=== PATIENT | male | born 1940 | race Caucasian/White ===

== ENCOUNTER 2020-02-24 09:59 | Day surgery (SDC) | payer MEDICARE, OTHER ==
[~2020-02-24] VITALS: Ht 160 cm; Wt 153.8 kg
[~2020-02-24 09:59] MED LIST: ALBU90OI61 INH; ALLO300 PO; BUME2 PO; CARV25 PO; CLOP75 PO; Cialis5 MG; DIGO.25 PO; Daily Multiple1 EACH PO; FURO100EL PO; FURO80 PO; GLUC500 PO; LISI5 PO; METF500 PO; POTCHL20ER PO; SOMA350 MG PO; SPIR50 PO; TRAACE PO; WARF5 PO
--- NOTE | 2020-02-24 18:41 | NUR ---
SHIFT SUMMARY PT IS ALERT AND ORIENTED. S/P ANGIO WITH 2 STENTS TO RCA. TR BAND HAS BEEN OFF AND RIGHT RADIAL IS SOFT, NO HEMATOMA, GOOD PULSES, ARMBOARD REMAINS IN PLACE. TELEMETRY HAS SHOWN PT TO BE IN A-FIB WITH RATES 40-60, ASYSTOMATIC. OTHER VITALS HAVE BEEN STABLE. PT DECLINED TO HAVE LASIX AND POTASSIUM DOSE THIS EVENING. LUNGS ARE CLEAR, DIM IN BASES, PT IS ON ROOM AIR.
[2020-02-25 04:07] LABS: International Normalized Ratio 1.03
--- NOTE | 2020-02-25 06:27 | NUR ---
patient came in after an elective angiogram with two stent placement. Patient did well overnight with no complaints. No chest pain, no chest pressure, or any other cardio pulmonary symptoms. Plan for this patient is likely to go home in the morning.
[2020-02-25] MEDS ORDERED: ASPI81CH PO (11:24)
--- NOTE | 2020-02-25 12:42 | NUR ---
PT DISCHARGE TO HOME WITH DISCHARGE ORDERS. VITALS HAS BEEN STABLE, NO ACUTE ISSUES FOR THE SHIFT. RIGHT RADIAL ACCESS SITE, CDI. DENIES CHEST PAIN/PRESSURE. PT TO CONTINUE CURRENT MEDS AT HOME TO START ASPIRIN 81 MG. DISCHARGE MEDICATIONS AND INSTRUCTIONS DISCLOSED [facility] PT AND . TO FOLLOW-UP WITHIN 2 WEEKS WITH [facility] SPLITTER AND PCP. ALL BELONGINGS SENT WITH PT, ACCOMPANIED BY [facility] VIA WHEELCHAIR FOR TRANSPORT.
== END 2020-02-25 12:30 | disposition home or self-care (01) ==
LOC: MHTC 09:59 → PCU 13:19 → MHTC 02-25 12:30
PROVIDERS: Internal Medicine Interventional Cardiology
PROC: B201YZZ Plain Radiography of Multiple Coronary Arteries using Other Contrast (ICD-10-PCS; principal; 2020-02-24)
PROC: 4A023N7 Measurement of Cardiac Sampling and Pressure, Left Heart, Percutaneous Approach (ICD-10-PCS; principal; 2020-02-24)
DX: I25.118 Atherosclerotic heart disease of native coronary artery with other forms of angina pectoris (principal); T82.855A Stenosis of coronary artery stent, initial encounter; I10 Essential (primary) hypertension; E11.9 Type 2 diabetes mellitus without complications; E66.01 Morbid (severe) obesity due to excess calories; E78.5 Hyperlipidemia, unspecified; Y83.1 Surgical operation with implant of artificial internal device as the cause of abnormal reaction of the patient, or of later complication, without mention of misadventure at the time of the procedure; Z79.84 Long term (current) use of oral hypoglycemic drugs; Z88.0 Allergy status to penicillin; Z79.82 Long term (current) use of aspirin; Z79.01 Long term (current) use of anticoagulants; Z79.899 Other long term (current) drug therapy; Z87.891 Personal history of nicotine dependence; Z68.44 Body mass index [BMI] 60.0-69.9, adult
CPT/HCPCS: 36415; 76937; 85347; 85610; 92978; 93458; 99152; 99153; A9270; A9270-GY; C1725; C1753; C1769; C1874; C1887; C1894; C9600; J1644; J1650; J2250; J3010; J7030; Q9967

== ENCOUNTER 2022-10-21 17:25 | Emergency (ER) | payer MEDICARE, OTHER ==
[~2022-10-21] VITALS: Ht 188 cm; Wt 145.2 kg
[~2022-10-21 17:25] MED LIST changes: +ASPI81CH PO; +ENTRESTO 49 MG1 EAC7; +FURO40 PO; +METO25ER PO; +METOPROLOL SUCC25 MG PO
[2022-10-21 18:57] LABS: BASOPHILS ABSOLUTE AUTO 0.03 K/mm3 (0.00-0.23); BASOPHILS PERCENT AUTO 0 % (0-2); EOSINOPHILS PERCENT AUTO 0 % (0-6); Hematocrit 37.3 % (37.0-53.0); Hemoglobin 12.2 g/dL (13.5-17.5); IMMATURE GRAN ABSOLUTE AUTO 0.05 K/mm3 (0.00-0.10); IMMATURE GRAN PERCENT AUTO 1 % (0-1); LYMPHOCYTES ABSOLUTE AUTO 0.56 K/mm3 (0.84-5.20); LYMPHOCYTES PERCENT AUTO 6 % (21-46); MONOCYTES ABSOLUTE AUTO 0.42 K/mm3 (0.16-1.47); MONOCYTES PERCENT AUTO 5 % (4-13); Mean Corpuscular HGB 31.5 pg (26.0-34.0); Mean Corpuscular HGB Conc 32.7 g/dL (31.5-36.5); Mean Corpuscular Volume 96 fL (80-100); Mean Platelet Volume 8.9 fL (9.1-12.4); NEUTROPHILS PERCENT AUTO 88 % (41-73); Platelet Count 209 K/mm3 (150-400); RDW Coefficient Variation 14.7 % (11.7-14.2); RDW Standard Deviation 52.2 fL (35.1-46.3); Red Blood Cell Count 3.87 M/mm3 (4.30-5.90); White Blood Cell Count 8.96 K/mm3 (4.00-11.30)
[2022-10-21 19:31] LABS: Albumin, Blood 3.8 g/dL (3.4-5.0); Bilirubin, Total 1.1 mg/dL (0.1-1.0); Bun/Creatinine Ratio 24.5 (12.0-20.0); Creatinine, Blood 0.86 mg/dL (0.60-1.20); Globulin, Blood 3.8 g/dL (2.2-4.0); Potassium, Blood 4.1 mmol/L (3.5-5.5); Total Protein, Blood 7.6 g/dL (6.4-8.2)
[2022-10-21] MEDS ORDERED: Percocet 5-3251 EACH PO (20:19)
[2022-10-21 20:54] LABS: Prothrombin Time Results 41.5 Sec (9.7-11.5)
[2022-10-21 20:58] LABS: International Normalized Ratio 4.35
== END 2022-10-21 20:56 | disposition home or self-care (01) ==
LOC: ER 17:25
PROVIDERS: Emergency Medicine
DX: M24.9 Joint derangement, unspecified (principal); I50.9 Heart failure, unspecified; R79.1 Abnormal coagulation profile; Z88.0 Allergy status to penicillin; Z79.899 Other long term (current) drug therapy; Z79.01 Long term (current) use of anticoagulants; Z95.5 Presence of coronary angioplasty implant and graft; Z79.84 Long term (current) use of oral hypoglycemic drugs
CPT/HCPCS: 80053; 85025; 85379; 85610; A9270; J1170; J2405

== ENCOUNTER 2023-01-24 20:15 | Emergency (ER) | payer MEDICARE, OTHER ==
[~2023-01-24] VITALS: Ht 175.3 cm; Wt 136.1 kg
[~2023-01-24 20:15] MED LIST changes: +Percocet 5-3251 EACH PO
[2023-01-24] MEDS ORDERED: ENTRESTO 24 MG1 EACH PO (20:35)
[2023-01-24 20:46] LABS: BASOPHILS ABSOLUTE AUTO 0.04 K/mm3 (0.00-0.23); BASOPHILS PERCENT AUTO 1 % (0-2); EOSINOPHILS ABSOLUTE AUTO 0.29 K/mm3 (0.00-0.68); EOSINOPHILS PERCENT AUTO 4 % (0-6); Hematocrit 36.2 % (37.0-53.0); Hemoglobin 12.4 g/dL (13.5-17.5); IMMATURE GRAN ABSOLUTE AUTO 0.03 K/mm3 (0.00-0.10); IMMATURE GRAN PERCENT AUTO 1 % (0-1); LYMPHOCYTES ABSOLUTE AUTO 1.15 K/mm3 (0.84-5.20); LYMPHOCYTES PERCENT AUTO 17 % (21-46); MONOCYTES ABSOLUTE AUTO 0.72 K/mm3 (0.16-1.47); MONOCYTES PERCENT AUTO 11 % (4-13); Mean Corpuscular HGB 31.9 pg (26.0-34.0); Mean Corpuscular HGB Conc 34.3 g/dL (31.5-36.5); Mean Corpuscular Volume 93 fL (80-100); Mean Platelet Volume 9.3 fL (9.1-12.4); NEUTROPHILS ABSOLUTE AUTO 4.42 K/mm3 (1.96-9.15); NEUTROPHILS PERCENT AUTO 66 % (41-73); Platelet Count 183 K/mm3 (150-400); RDW Standard Deviation 50.8 fL (35.1-46.3); Red Blood Cell Count 3.89 M/mm3 (4.30-5.90); White Blood Cell Count 6.65 K/mm3 (4.00-11.30)
[2023-01-24 20:57] LABS: Albumin, Blood 3.4 g/dL (3.4-5.0); Bilirubin, Total 0.8 mg/dL (0.1-1.0); Bun/Creatinine Ratio 28.6 (12.0-20.0); Calcium, Blood 8.2 mg/dL (8.5-10.1); Creatinine, Blood 1.05 mg/dL (0.60-1.20); Globulin, Blood 3.5 g/dL (2.2-4.0); Potassium, Blood 3.8 mmol/L (3.5-5.5); Total Protein, Blood 6.9 g/dL (6.4-8.2)
[2023-01-24 22:12] LABS: Source, Urine Clean Catch
[2023-01-24 22:19] LABS: Bilirubin, Urine Neg (Neg); Blood, Urine Neg (Neg); Glucose Qualitative, Urine Neg (Neg); Ketones, Urine Neg (Neg); Leukocyte Esterase, Urine Neg (Neg); Nitrite, Urine Neg (Neg); Protein, Urine 2+ (Neg); Urobilinogen, Urine NORM (Normal)
[2023-01-24 22:22] LABS: Appearance, Urine Clear (Clear); Color, Urine Yellow (P-Yellow)
[2023-01-24 22:29] LABS: Bacteria Not Seen /hpf; Red Blood Cells, Urine Not Seen /hpf (0-2); Squamous Epithelial Cells Rare /hpf (Few); White Blood Cells, Urine 0-2 /hpf (0-5)
[2023-01-25 00:47] VITALS: BP 122/87
== END 2023-01-25 01:14 | disposition home or self-care (01) ==
LOC: ER 20:15
PROVIDERS: Emergency Medicine
DX: E86.0 Dehydration (principal); Z88.0 Allergy status to penicillin; Z79.01 Long term (current) use of anticoagulants; Z79.02 Long term (current) use of antithrombotics/antiplatelets; Z79.890 Hormone replacement therapy; Z79.899 Other long term (current) drug therapy; E11.9 Type 2 diabetes mellitus without complications; J45.909 Unspecified asthma, uncomplicated
CPT/HCPCS: 80053; 81001; 82947; 83605; 84484; 85025; 85730; 93005; 93010; 96360; 99285-25; J7030

== ENCOUNTER 2023-08-24 08:46 | Inpatient (IN) | payer MEDICARE ==
[~2023-08-24] VITALS: Ht 188 cm; Wt 140.0 kg
[~2023-08-24 08:46] MED LIST changes: +ENTRESTO 49 MG1 EACH PO
[2023-08-24 09:12] LABS: BASOPHILS ABSOLUTE AUTO 0.04 K/mm3 (0.00-0.23); BASOPHILS PERCENT AUTO 1 % (0-2); EOSINOPHILS ABSOLUTE AUTO 0.05 K/mm3 (0.00-0.68); EOSINOPHILS PERCENT AUTO 1 % (0-6); Hematocrit 43.3 % (37.0-53.0); Hemoglobin 14.7 g/dL (13.5-17.5); IMMATURE GRAN ABSOLUTE AUTO 0.02 K/mm3 (0.00-0.10); IMMATURE GRAN PERCENT AUTO 0 % (0-1); LYMPHOCYTES ABSOLUTE AUTO 1.11 K/mm3 (0.84-5.20); LYMPHOCYTES PERCENT AUTO 17 % (21-46); MONOCYTES ABSOLUTE AUTO 0.73 K/mm3 (0.16-1.47); MONOCYTES PERCENT AUTO 11 % (4-13); Mean Corpuscular HGB 31.7 pg (26.0-34.0); Mean Corpuscular HGB Conc 33.9 g/dL (31.5-36.5); Mean Corpuscular Volume 94 fL (80-100); Mean Platelet Volume 8.6 fL (9.1-12.4); NEUTROPHILS ABSOLUTE AUTO 4.53 K/mm3 (1.96-9.15); NEUTROPHILS PERCENT AUTO 70 % (41-73); Platelet Count 217 K/mm3 (150-400); RDW Coefficient Variation 14.8 % (11.7-14.2); RDW Standard Deviation 50.8 fL (35.1-46.3); Red Blood Cell Count 4.63 M/mm3 (4.30-5.90); White Blood Cell Count 6.48 K/mm3 (4.00-11.30)
[2023-08-24] MEDS ORDERED: ALLO300 PO (09:23)
[2023-08-24] MEDS ORDERED: FURO80 PO (09:24)
[2023-08-24 09:27] LABS: Albumin, Blood 3.5 g/dL (3.4-5.0); Albumin/Globulin Ratio 0.9 (0.8-1.8); Bilirubin, Total 1.7 mg/dL (0.1-1.0); Bun/Creatinine Ratio 22.6 (12.0-20.0); Calcium, Blood 9.1 mg/dL (8.5-10.1); Creatinine, Blood 0.97 mg/dL (0.60-1.20); Globulin, Blood 3.8 g/dL (2.2-4.0); Magnesium, Blood 2.1 mg/dL (1.6-2.4); Potassium, Blood 3.2 mmol/L (3.5-5.5); Total Protein, Blood 7.3 g/dL (6.4-8.2)
[2023-08-24] MEDS ORDERED: Potassium Chloride 20 MEQ TabCR PO ONE ×2 (11:05→13:00)
[2023-08-24] MEDS ORDERED: Acetaminophen 325 MG TABLET PO PRN (12:00)
[2023-08-24] MEDS ORDERED: Ondansetron HCl 2 MG / ML 2ML Vial IV PRN (12:00)
[2023-08-24] MEDS ORDERED: FLU VACC QS2023-24(6MOS UP)/PF 60 MCG/0.5 ML SYRINGE IM SCH (12:00)
[2023-08-24] MEDS ORDERED: Albuterol HFA200 ACT/6.7 GM INH INH PRN (12:05)
[2023-08-24 12:25] LABS: International Normalized Ratio 3.34; Prothrombin Time Results 32.8 Sec (9.7-11.5)
[2023-08-24 14:23] VITALS: BP 120/77
[2023-08-24] MEDS ORDERED: K-TAB ER20 ME1 PO (14:59)
--- NOTE | 2023-08-24 18:03 | NUR ---
ADMISSION/SHIFT SUMMARY: PT IS NEW ADMIT, ARRIVES APPROX 1400. PT IS A&Ox4, COOPERATIVE W/CARE, ABLE TO MAKE NEEDS KNOWN. PT DENIES SYNCOPE OR DIZZINESS SINCE ARRIVAL TO UNIT. PT DENIES SOB, O2 SATS >93% ON RA. AFIB ON MONITOR, RATE 70s, PT DENIES CP. AMIO GTT INFUSING PER ORDERS. ECHO COMPLETED AT BEDSIDE. PLAN IS FOR PT TO BE NPO AT MIDNIGHT FOR ANGIOGRAM ON 08/25/23. PT HAS BEEN SBA W/FWW. AT THIS TIME, PT IS RESTING QUIETLY IN ROOM W/MEAL TRAY AND CALL LIGHT IN REACH. WILL CONTINUE TO MONITOR AND TREAT ACCORDINGLY UNTIL CHANGE OF SHIFT.
[2023-08-24 20:00] VITALS: BP 91/68
[2023-08-24] MEDS ORDERED: Sacubitril/Valsartan 24 MG-26 MG Tab PO SCH (21:00)
[2023-08-25] VITALS (7 sets, daily range): BP systolic 114–126; BP diastolic 74–95
[2023-08-25 04:23] LABS: Hematocrit 40.5 % (37.0-53.0); Hemoglobin 13.2 g/dL (13.5-17.5); Mean Corpuscular HGB 31.2 pg (26.0-34.0); Mean Corpuscular HGB Conc 32.6 g/dL (31.5-36.5); Mean Corpuscular Volume 96 fL (80-100); Mean Platelet Volume 9.2 fL (9.1-12.4); Platelet Count 192 K/mm3 (150-400); RDW Coefficient Variation 14.9 % (11.7-14.2); RDW Standard Deviation 52.6 fL (35.1-46.3); Red Blood Cell Count 4.23 M/mm3 (4.30-5.90); White Blood Cell Count 7.36 K/mm3 (4.00-11.30)
[2023-08-25 04:45] LABS: Albumin, Blood 2.9 g/dL (3.4-5.0); Anion Gap 1 mmol/L (6-16); Blood Urea Nitrogen 20 mg/dL (8-24); Bun/Creatinine Ratio 22.5 (12.0-20.0); CHOL/HDL RATIO 3.1; CO2, Blood 31 mmol/L (21-32); Calcium, Blood 8.6 mg/dL (8.5-10.1); Chloride, Blood 108 mmol/L (98-108); Cholesterol 157 mg/dL (50-200); Creatinine, Blood 0.89 mg/dL (0.60-1.20); Glomerular Filtration Rate 86 (60-); Glucose, Blood 117 mg/dL (70-99); HDL Cholesterol 51 mg/dL (>39); LDL/HDL RATIO 1.8; Low Density Lipoprotein Chol 94 mg/dL (0-110); Magnesium, Blood 2.2 mg/dL (1.6-2.4); Potassium, Blood 3.2 mmol/L (3.5-5.5); Sodium, Blood 140 mmol/L (136-145); Triglycerides 60 mg/dL (30-160); Very Low Density Lipoprot Chol 12 mg/dL (6-32)
--- NOTE | 2023-08-25 06:28 | NUR ---
SHIFT SUMMARY PT A&O X4, PLEASANT AND COOPERATIVE WITH CARE. VSS; SBP INTIALLY 91, LAST 0400 VS SHOWED 126. PT REMAINS AFIB WITH RATE IN 70 - 80'S. TELEMETRY SHOWS FREQUENT PVC'S, SB WHILE SLEEPING RANGING FROM 45 - 50'S. PT OCCASSIONALLY TOUCHED INTO THE 30'S BUT DID NOT SUSTAIN. PT DENIES SX. PT REMAINS FREE OF CP/PRESSURE, DIZZINESS, PALPITATIONS. PT DENIES N/V. PT DOES ENDORSE SOB WITH ACTIVITY, THIS RN DOES NOTE DYSPNEA WITH EXERTION WELL. REMAINS ON RA, AFEBRILE. AMIO GTT INFUSING PER EMAR. PT HAD COMPLETE BED BATH THIS SHIFT. PT AMBULATING TO RESTROOM WITH FWW, GB AND SBA. PT TOLERATING WELL, DENIES DIZZINESS OR LIGHTHEADNESS. PT STEADY ON HIS FEET AND WITH WALKER. PT GROIN AND FOLDS FAILRY RED AND YEAST ODOR NOTED. PT STATES THE POWDER WORSENS RASH AND HIS WILL BRING IN HOME MEDICATION FOR PHARMACY TO VERIFY. PT SLEPT WELL DURING THE NIGHT, NPO SINCE 0000 FOR PROCEDURE THIS AM. CALL LIGHT IN REACH, PT ABLE TO VERBALIZE NEEDS. WILL UPDATE ONCOMING RN
[2023-08-25 07:46] LABS: International Normalized Ratio 3.46; Prothrombin Time Results 33.9 Sec (9.7-11.5)
--- NOTE | 2023-08-25 08:00 | NUR ---
Patient gave this student nurse concent to participate in his medical care.
[2023-08-25] MEDS ORDERED: Amiodarone HCl 200 MG Tab PO SCH (09:00)
[2023-08-25] MEDS ORDERED: Clopidogrel Bisulfate 75 MG Tab PO SCH (09:00)
[2023-08-25] MEDS ORDERED: Allopurinol 300 MG Tab PO SCH (09:00)
[2023-08-25] MEDS ORDERED: Potassium Chloride 20 MEQ/15 ML UDC PO SCH (09:00)
[2023-08-25] MEDS ORDERED: Multivitamins 1 Tab PO SCH (09:00)
[2023-08-25] MEDS ORDERED: Metoprolol Succinate 25 MG TABCR PO SCH (09:00)
[2023-08-25] MEDS ORDERED: Docusate Sodium 100 MG Cap PO SCH (09:55)
--- NOTE | 2023-08-25 10:18 | NUR ---
AM NOTE: PATIENT ALERT AND ORIENTED X4. PERRLA, TO BRING IN GLASSES. UP WITH FWW AND SBA TO BATHROOM. MOVING ALL EXTREMITIES. PATIENT REPORTS INTERMIT N/T TO RIGHT HEEL AND SOME CHRONIC ACHES AND PAINS IN LEFT LOWER EXTREMITY AT NIGHT. MOVING ALL EXTREMITIES WNL AND ABLE TO TURN SELF IN BED. ON ROOM AIR SATING ABOVE 95%. EVEN AND UNLABORED RESPIRATIONS. SOB WHEN UP TO BATHROOM. DENIES SOB AT REST/COUGH. LUNGS SOUNDING CLEAR AND DIM IN BASES. TELE SHOWING AFIB WITH HR 70-80'S. DENIES CHEST PAIN/PRESSURE/PAPLITATIONS. POSSIBLE ANGIO TODAY. PT/INR LABS DRAWN THIS AM. AMIO GTT INFUSING PER EMAR. DR. NICHOLE CALLED THIS AM BY THIS RN TO DISCUSS PO AMIO, MORNING INR AND POTASSIUM. EDEMA NOTED TO BLE, WORSE ON RIGHT. DENIES ABDOMINAL PAIN/NAUSEA. NPO AT THIS TIME. REFUSED ORAL CARE THIS AM. COMPLAINS OF CONSTIPATION, MD KING AWARE AND STOOL SOFTNERS ORDERED THIS AM. UP TO BATHROOM WITH SBA. ONE UNMEASURED VOID THIS AM. ACHS BLOOD SUGAR CHECKS. YEASTY/RED RASH NOTED TO LEFT GROIN/ABDOMINAL AREA. PATIENT STATES HE HAS WORSENING FLAIR UP AT THIS TIME DUE TO THE STRESS OF MOVING. PATIENT STATES POWDER MAKES RASH WORSE. TO BRING IN CREAM THIS AFTERNOON. DENIES NEEDS AT THIS TIME. RESTING IN BED, WATCHING TV. CALL LIGHT IN REACH.
--- NOTE | 2023-08-25 10:50 | NUR ---
DR. NICHOLE BY THIS AM, THIS RN AT BEDSIDE FOR ROUNDING. NO ANGIO TODAY, POSSIBLE ANGIO TOMORROW WITH NPO AT MIDNIGHT. PATIENT ABLE TO EAT. NO OTHER ORDERS AT THIS TIME.
[2023-08-25] MEDS ORDERED: Phytonadione 5 MG Tab PO ONE (11:35)
[2023-08-25] MEDS ORDERED: Furosemide 10 MG / ML 2ML Vial IV SCH (12:00)
[2023-08-25] MEDS ORDERED: Potassium Chloride 20 MEQ TabCR PO SCH (12:30)
[2023-08-25] MEDS ORDERED: KETO15TC TOP (16:46)
--- NOTE | 2023-08-25 18:18 | NUR ---
SHIFT SUMMARY: NO ACUTE CHANGES. PATIENT UP TO RECLINER THIS AFTERNOON, USING WALKER AND SBA TO BATHROOM. IV SALINE LOCKED. VITALS REMAINS STABLE. TELE SHOWING AFIB WITH HR 70-90'S AT REST THIS EVENING AND UP TO 120'S WHEN IN BATHROOM MOVING AROUND. CONTINUES TO DENY CHEST PAIN/PRESSURE. EATING DINNER AT THIS TIME IN RECLINER WATCHING TV. CALL LIGHT IN REACH. DENIES NEEDS.
[2023-08-25] MEDS ORDERED: Ketoconazole 2% Cream 15 GM TOP SCH (21:00)
[2023-08-26] VITALS (12 sets, daily range): BP systolic 100–147; BP diastolic 62–128
--- NOTE | 2023-08-26 04:49 | NUR ---
SHIFT SUMMARY PT A&O X4. ABLE TO MAKE NEED KNOWN. PT IN AFIB WITH BBB AND PVC'S MOST OF THE SHIFT, HR 60-70'S, TACHY WITH EVERTION TO THE 120'S. DENIES CHEST PAIN/PRESSURE. WHILE PT IS SLEEPING, TELE SHOWING QUICK EPISODES OF VENTRICULAR RHYTHMS PER WOMEN'S APPAREL SALESPERSON. THIS RN DISCUSSED WITH HUMAN RESOURCES RECORDS CLERK REGARDING RHYTHM, HR 50-60'S, PT ASYMPTOMATIC, BP STABLE. NO CALL PLACED TO MD AT THIS TIME AFTER DISCUSSING WITH HUMAN RESOURCES RECORDS CLERK. PT OCCASIONALLY LASHAE TO 30'S WHILE SLEEPING WELL, DOES NOT SUSTAIN. PT HAS BEEN NPO SINCE MIDNIGHT FOR ANGIO. ON RA WITH SPO2 >92%. CREAM APPLIED TO LEFT GROIN RASH. BED IN LOWEST POSITION AND CALL LIGHT WITHIN REACH. THIS RN WILL REPORT TO ONCOMING DAYSHIFT RN.
[2023-08-26 05:41] LABS: International Normalized Ratio 1.71; Prothrombin Time Results 17.4 Sec (9.7-11.5)
[2023-08-26 06:07] LABS: Albumin, Blood 2.9 g/dL (3.4-5.0); Anion Gap 2 mmol/L (6-16); Blood Urea Nitrogen 21 mg/dL (8-24); Bun/Creatinine Ratio 21.6 (12.0-20.0); CO2, Blood 30 mmol/L (21-32); Calcium, Blood 8.8 mg/dL (8.5-10.1); Chloride, Blood 106 mmol/L (98-108); Creatinine, Blood 0.97 mg/dL (0.60-1.20); Glomerular Filtration Rate 78 (60-); Glucose, Blood 116 mg/dL (70-99); Magnesium, Blood 2.1 mg/dL (1.6-2.4); Phosphorus, Blood 2.8 mg/dL (2.5-4.9); Potassium, Blood 3.5 mmol/L (3.5-5.5); Sodium, Blood 138 mmol/L (136-145)
[2023-08-26] MEDS ORDERED: NS 1,000 ML IV ONE ×2 (09:05→09:12)
[2023-08-26] MEDS ORDERED: NS 250 ML IV ONE (09:05)
[2023-08-26] MEDS ORDERED: Heparin Sodium 1000 Units/ML 10ML MDV ONE ×2 (09:05→10:24)
[2023-08-26] MEDS ORDERED: Nitroglycerin 2 MG/20 ML BTL ONE (09:06)
[2023-08-26] MEDS ORDERED: NiCARdipine HCL 1,000 MCG/5 ML SYR ONE (09:06)
[2023-08-26] MEDS ORDERED: Midazolam HCl 1MG / ML 2ML Vial ONE (09:12)
[2023-08-26] MEDS ORDERED: FentaNYL Citrate 50 MCG/ML 2 ML Injection ONE (09:12)
--- NOTE | 2023-08-26 09:25 | NUR ---
PT TO [facility] FOR PROCEDURE AT THIS TIME WITH HC RN'S.
[2023-08-26] MEDS ORDERED: Aspirin 81 MG Chew ONE (09:57)
[2023-08-26] MEDS ORDERED: Clopidogrel Bisulfate 300 MG Cap ONE (10:17)
--- NOTE | 2023-08-26 11:15 | NUR ---
PT TO UNIT FROM [facility]. REPORT RECEIVED FROM BRAD ROSARIO. TR BAND NOTED TO R RADIAL. NO SWELLING/BLEEDING/HEMATOMA NOTED TO RADIAL SITE. PT AOX4 DENIES CHEST PAIN/PRESSURE. VSS. PT EDUCATED TO LIMIT USE OF R HAND AND ON POC.
--- NOTE | 2023-08-26 18:30 | NUR ---
SHIFT SUMMARY PT AOX4 OBEYS COMMANDS AND CALLS APPROPRIATELY. PT DENIES CHEST PAIN/PRESSURE OR SOB. PT TO [facility] AT APPROX 0925 FOR ANGIOGRAM AND RETURNED TO ROOM AT APPROX 1115. PER [facility]ART [facility]ENTER STAFF PT HAD 12ML OF AIR INSTILLED INTO TR BAND ON R WRIST AND PT HAD STENT PLACED IN DISTAL LAD. PT SPO2>92% ON RA, BREATHING EVEN AND NON LABORED. PT DENIES CHEST PAIN/PRESSURE TELE AFIB 80S-90S. VSS. PT ABLE TO AMBULATE TO BATHROOM STA WITH FWW. TR BAND WITH NO S/S OF BLEEDING, NO HEMATOMA. TR BAND RECOVERED FOLLOWS 1530 -2ML OF AIR 1552 -2ML OF AIR 1650 -2ML OF AIR 1730 -2ML OF AIR 1754 -2ML OF AIR 1608 -2ML OF AIR FOR TOTAL OF 12ML OF AIR REMOVED FROM TR BAND AND IS BEING LEFT IN PLACE FOR 1 HR NO ACUTE CHANGES.
[2023-08-27 03:49] VITALS: BP 120/86
[2023-08-27 04:00] LABS: International Normalized Ratio 1.16; Prothrombin Time Results 12.1 Sec (9.7-11.5)
--- NOTE | 2023-08-27 04:45 | NUR ---
SHIFT SUMMARY NO ACUTE CHANGES OVERNIGHT. AFIB WITH BBB AND PVC'S NOTED ON TELE. NO OTHER TELE EVENTS NOTED. PT ON RA WITH SPO2 >92%. BP STABLE. AFEBRILE. RT RADIAL ANGIO SITE FULLY RECOVERED. NO BLEEDING, OOZING, DISCOLORATION, OR HEMATOMA NOTED. DRESSING C/D/I. ARMBOARD IN PLACE. PT VERBALIZED UNDERSTANDING EDUCATION REGARDING RESTRICTIONS WITH RT ARM/WRIST. PT SBA TO BATHROOM. WEAK/UNSTEADY GAIT NOTED. PT ENCOURAGED TO USE WALKER. CREAM APPLIED TO LEFT ABDOMINAL/GROIN FOLDS. BED IN LOWEST POSITION AND CALL LIGHT WITHIN REACH. THIS RN WILL REPORT TO ONCOMING DAYSHIFT RN.
[2023-08-27] MEDS ORDERED: Pantoprazole Sodium 20 MG Tab PO SCH (06:00)
[2023-08-27 07:13] VITALS: BP 107/67
[2023-08-27] MEDS ORDERED: Metoprolol Succinate 25 MG TABCR PO SCH (09:00)
[2023-08-27] MEDS ORDERED: Aspirin 81 MG TabEC PO SCH (09:00)
--- NOTE | 2023-08-27 11:20 | NUR ---
PT EDUCATED TO USE CALL LIGHT FOR STA TO BATHROOM PT IS NON COMPLIANT ANS REPORTS HE DOESNT NEED IT. PT EDUCATED ON RISKS OF FALLING PT CONTINUES TO NOT USE CALL LIGHT. CALL LIGHT IN REACH AND FREQUENT ROUNDING ON PT BEING DONE.
[2023-08-27] MEDS ORDERED: PANT20 PO (12:08)
[2023-08-27] MEDS ORDERED: ASPI81CH PO (12:08)
[2023-08-27] MEDS ORDERED: XARELTO20 M1 PO (12:10)
--- NOTE | 2023-08-27 13:22 | NUR ---
SHIFT SUMMARY PT AOX4 CALLS APPROPRIATELY AND OBEYS COMMANDS. PT DENIES CHEST PAIN OR PRESSURE. BREATHING EVEN AND UNLABORED SPO2>92% ON RA. NADN. PT REFUSED PHYSICAL THERAPY EVALUATION AND REFUSED USE OF ASSISTANCE TO BATHROOM AND USE OF FWW. PT D/C BY TARAS ROSARIO SEE NOTE. NO ACUTE CHANGES.
--- NOTE | 2023-08-27 13:28 | NUR ---
DISCHARGE UPDATE DISCHARGE PACKET GONE OVER WITH PT AND PT FAMILY MEMBERS AT 1320. PT GIVEN STENT CARD IN PACKET. PT DISCHARGED AT 1330 VIA WHEELCHAIR AND ON RA. PT ABLE TO TRANSFER SELF TO AND FROM WHEELCHAIR ON HIS OWN, TOLERATED WELL. PT PERSONAL BELONGING IN BAGS AND WITH PT AT TIME OF DISCHARGE. DISCHARGE PACKET WITH PT AT TIME OF DISCHARGE.
== END 2023-08-27 13:35 | disposition home or self-care (01) | DRG 321 ==
LOC: ER 08:46 → PCU 12:35
PROVIDERS: Emergency Medicine; ADMIT Internal Medicine
PROC: 027034Z Dilation of Coronary Artery, One Artery with Drug-eluting Intraluminal Device, Percutaneous Approach (ICD-10-PCS; principal; 2023-08-26)
PROC: B241ZZ3 Ultrasonography of Multiple Coronary Arteries, Intravascular (ICD-10-PCS; 2023-08-26)
PROC: B211YZZ Fluoroscopy of Multiple Coronary Arteries using Other Contrast (ICD-10-PCS; 2023-08-26)
PROC: 4A023N7 Measurement of Cardiac Sampling and Pressure, Left Heart, Percutaneous Approach (ICD-10-PCS; 2023-08-26)
DX: I47.20 Ventricular tachycardia, unspecified (principal); I50.23 Acute on chronic systolic (congestive) heart failure; I24.9 Acute ischemic heart disease, unspecified; I25.10 Atherosclerotic heart disease of native coronary artery without angina pectoris; E66.01 Morbid (severe) obesity due to excess calories; E11.9 Type 2 diabetes mellitus without complications; I48.21 Permanent atrial fibrillation; I27.20 Pulmonary hypertension, unspecified; I11.0 Hypertensive heart disease with heart failure; E78.5 Hyperlipidemia, unspecified; I44.7 Left bundle-branch block, unspecified; I48.0 Paroxysmal atrial fibrillation; J45.909 Unspecified asthma, uncomplicated; M10.9 Gout, unspecified; E87.6 Hypokalemia; F10.90 Alcohol use, unspecified, uncomplicated; Z86.718 Personal history of other venous thrombosis and embolism; Z90.89 Acquired absence of other organs; Z95.5 Presence of coronary angioplasty implant and graft; Z98.890 Other specified postprocedural states; Z87.891 Personal history of nicotine dependence; Z88.0 Allergy status to penicillin; Z79.02 Long term (current) use of antithrombotics/antiplatelets; Z79.01 Long term (current) use of anticoagulants; Z79.899 Other long term (current) drug therapy; Z91.148 Patient's other noncompliance with medication regimen for other reason; Z68.25 Body mass index [BMI] 25.0-25.9, adult
CPT/HCPCS: 36415; 71045; 76937; 80053; 80061; 80069; 82947; 83036; 83735; 83880; 84100; 84443; 84484; 85025; 85027; 85347; 85610; 92978; 93005; 93010; 93306; 93454; 94760; 96365; 96366; 96376; 97162; 99152; 99153; 99285-25; A9270; C1725; C1753; C1769; C1874; C1887; C1894; C9113; C9600; J0282; J1644; J1940; J2250; J3010; J7030; J7050; J7060; Q9967

== ENCOUNTER 2023-11-14 17:27 | Emergency (ER) | payer MEDICARE, OTHER ==
[~2023-11-14] VITALS: Ht 177.8 cm; Wt 145.2 kg
[~2023-11-14 17:27] MED LIST changes: +K-TAB ER20 ME1 PO; +KETO15TC TOP; +PANT20 PO; +XARELTO20 M1 PO
[2023-11-14 17:57] LABS: BASOPHILS ABSOLUTE AUTO 0.04 K/mm3 (0.00-0.23); BASOPHILS PERCENT AUTO 0 % (0-2); EOSINOPHILS PERCENT AUTO 1 % (0-6); Hematocrit 33.6 % (37.0-53.0); Hemoglobin 10.7 g/dL (13.5-17.5); IMMATURE GRAN ABSOLUTE AUTO 0.04 K/mm3 (0.00-0.10); IMMATURE GRAN PERCENT AUTO 0 % (0-1); LYMPHOCYTES ABSOLUTE AUTO 1.03 K/mm3 (0.84-5.20); LYMPHOCYTES PERCENT AUTO 11 % (21-46); MONOCYTES ABSOLUTE AUTO 1.18 K/mm3 (0.16-1.47); MONOCYTES PERCENT AUTO 12 % (4-13); Mean Corpuscular HGB 29.6 pg (26.0-34.0); Mean Corpuscular HGB Conc 31.8 g/dL (31.5-36.5); Mean Corpuscular Volume 93 fL (80-100); Mean Platelet Volume 9.5 fL (9.1-12.4); NEUTROPHILS ABSOLUTE AUTO 7.09 K/mm3 (1.96-9.15); NEUTROPHILS PERCENT AUTO 75 % (41-73); Platelet Count 259 K/mm3 (150-400); RDW Coefficient Variation 15.4 % (11.7-14.2); RDW Standard Deviation 52.7 fL (35.1-46.3); Red Blood Cell Count 3.61 M/mm3 (4.30-5.90); White Blood Cell Count 9.48 K/mm3 (4.00-11.30)
[2023-11-14 18:14] LABS: Albumin, Blood 3.6 g/dL (3.4-5.0); Albumin/Globulin Ratio 0.9 (0.8-1.8); Bilirubin, Total 1.4 mg/dL (0.1-1.0); Bun/Creatinine Ratio 38.5 (12.0-20.0); Calcium, Blood 8.7 mg/dL (8.5-10.1); Creatinine, Blood 0.99 mg/dL (0.60-1.20); Globulin, Blood 3.8 g/dL (2.2-4.0); Potassium, Blood 4.1 mmol/L (3.5-5.5); Total Protein, Blood 7.4 g/dL (6.4-8.2)
[2023-11-14 19:00] VITALS: BP 103/81
== END 2023-11-14 19:34 | disposition home or self-care (01) ==
LOC: ER 17:27
PROVIDERS: Emergency Medicine
DX: R55 Syncope and collapse (principal); E11.9 Type 2 diabetes mellitus without complications; I50.9 Heart failure, unspecified; I48.91 Unspecified atrial fibrillation; Z87.891 Personal history of nicotine dependence; Z79.899 Other long term (current) drug therapy
CPT/HCPCS: 80053; 84484; 85025; 93005; 93010; 99284-25

== ENCOUNTER 2023-11-18 11:30 | Inpatient (IN) | payer MEDICARE, OTHER ==
[2023-11-18] VITALS (18 sets, daily range): BP systolic 82–128; BP diastolic 53–99
[~2023-11-18] VITALS: Ht 190.5 cm; Wt 149.0 kg
[2023-11-18 11:53] LABS: BASOPHILS ABSOLUTE AUTO 0.04 K/mm3 (0.00-0.23); BASOPHILS PERCENT AUTO 1 % (0-2); EOSINOPHILS ABSOLUTE AUTO 0.07 K/mm3 (0.00-0.68); EOSINOPHILS PERCENT AUTO 1 % (0-6); Hematocrit 33.1 % (37.0-53.0); Hemoglobin 10.7 g/dL (13.5-17.5); IMMATURE GRAN ABSOLUTE AUTO 0.07 K/mm3 (0.00-0.10); IMMATURE GRAN PERCENT AUTO 1 % (0-1); LYMPHOCYTES PERCENT AUTO 11 % (21-46); MONOCYTES ABSOLUTE AUTO 0.85 K/mm3 (0.16-1.47); MONOCYTES PERCENT AUTO 10 % (4-13); Mean Corpuscular HGB 29.6 pg (26.0-34.0); Mean Corpuscular HGB Conc 32.3 g/dL (31.5-36.5); Mean Corpuscular Volume 91 fL (80-100); Mean Platelet Volume 9.5 fL (9.1-12.4); NEUTROPHILS ABSOLUTE AUTO 6.37 K/mm3 (1.96-9.15); NEUTROPHILS PERCENT AUTO 77 % (41-73); Platelet Count 242 K/mm3 (150-400); RDW Coefficient Variation 15.2 % (11.7-14.2); RDW Standard Deviation 51.1 fL (35.1-46.3); Red Blood Cell Count 3.62 M/mm3 (4.30-5.90)
[2023-11-18] MEDS ORDERED: WARF2.5 PO (11:54)
[2023-11-18 12:28] LABS: Albumin, Blood 3.5 g/dL (3.4-5.0); Bilirubin, Total 1.5 mg/dL (0.1-1.0); Bun/Creatinine Ratio 30.1 (12.0-20.0); Calcium, Blood 8.6 mg/dL (8.5-10.1); Creatinine, Blood 0.97 mg/dL (0.60-1.20); Globulin, Blood 3.5 g/dL (2.2-4.0); Potassium, Blood 3.9 mmol/L (3.5-5.5)
[2023-11-18] MEDS ORDERED: Furosemide 10 MG/ML 10ML Vial IV ONE (14:00)
[2023-11-18] MEDS ORDERED: Acetaminophen 325 MG TABLET PO PRN (15:05)
[2023-11-18 15:25] LABS: Magnesium, Blood 2.3 mg/dL (1.6-2.4); Thyroid Stimulating Hormone 4.05 uIU/mL (0.360-4.800)
[2023-11-18] MEDS ORDERED: Insulin Regular 100 UNIT/ML 10ML Vial SC SCH (16:30)
[2023-11-18] MEDS ORDERED: Potassium Chloride 20 MEQ TabCR PO SCH (17:00)
[2023-11-18 17:25] LABS: International Normalized Ratio 2.49; Prothrombin Time Results 24.9 Sec (9.7-11.5)
--- NOTE | 2023-11-18 17:59 | NUR ---
PT ADMITTED TO ICU 12 FROM ER AT 1615. PT STANDS TO USE URINAL THEN GETS HIMSELF TO BED. PT ABLE TO MOVE SELF IN BED. A/O X4, DENIES PAIN AND SOB. PT HAS A LARGE BRUISE TO PUBIS BONE. STATES HE TOOK A FALL ON THURSDAY AND IT MUST HAVE HAPPENED THEN. TOOK PHOTOS AND OUTLINED WITH SKIN MARKER. ALSO HAS SMALL LUMP WITHIN THE BRUISE THAT IS NON TENDER. PT HAS REDDENED SKIN FOLDS AND STATES THEY HAVE BEEN TREATING WITH YEAST POWDER AT HOME. SITTING UP EATING DINNER NOW. NO SIGN OF DISTRESS, USES CALL LIGHT APPROPRIATELY.
[2023-11-18] MEDS ORDERED: Furosemide 10 MG/ML 4ML Vial IV SCH ×2 (18:00)
[2023-11-18] MEDS ORDERED: Sacubitril/Valsartan 49 MG/51 MG Tab PO SCH (21:00)
[2023-11-18] MEDS ORDERED: Miconazole Nitrate 28 GM CREAM..G. TOP SCH (21:00)
[2023-11-18] MEDS ORDERED: Miconazole Nitrate 2% 85 GM PWD TOP SCH (21:00)
--- NOTE | 2023-11-18 21:51 | NUR ---
ASSUME CARE PT RESTING COMFORTABLY IN BED DURING BSSR. PT ABLE TO STAND UP WITH MINIMAL ASSISTANCE TO USE URINAL, NEEDED ASSISTANCE TO BE BOOSTED IN BED AFTER RETURNING TO BED. WHEN DISCUSSING MEDICATIONS FOR TONIGHT, PT STATED THAT THE [place] POWDER "MADE THE RASH WORSE" SO REQUESTED THE CREAM, SEE NEW ORDER. PT REMAINS SALINE LOCKED WITH [address] PT IN AFIB ON CONTINUOUS CARDIAC MONITORING, BP WDL AT THIS TIME. PT ABLE TO MAKE NEEDS KNOWN, IS ANXIOUS TO BE DOWNGRADED TO PCU.
[2023-11-19] VITALS (21 sets, daily range): BP systolic 84–117; BP diastolic 49–84
[2023-11-19 03:54] LABS: BASOPHILS ABSOLUTE AUTO 0.04 K/mm3 (0.00-0.23); BASOPHILS PERCENT AUTO 1 % (0-2); EOSINOPHILS PERCENT AUTO 1 % (0-6); Hematocrit 32.4 % (37.0-53.0); Hemoglobin 10.2 g/dL (13.5-17.5); IMMATURE GRAN ABSOLUTE AUTO 0.02 K/mm3 (0.00-0.10); IMMATURE GRAN PERCENT AUTO 0 % (0-1); LYMPHOCYTES ABSOLUTE AUTO 0.94 K/mm3 (0.84-5.20); LYMPHOCYTES PERCENT AUTO 13 % (21-46); MONOCYTES ABSOLUTE AUTO 0.81 K/mm3 (0.16-1.47); MONOCYTES PERCENT AUTO 11 % (4-13); Mean Corpuscular HGB 29.4 pg (26.0-34.0); Mean Corpuscular HGB Conc 31.5 g/dL (31.5-36.5); Mean Corpuscular Volume 93 fL (80-100); Mean Platelet Volume 9.2 fL (9.1-12.4); NEUTROPHILS ABSOLUTE AUTO 5.49 K/mm3 (1.96-9.15); NEUTROPHILS PERCENT AUTO 74 % (41-73); Platelet Count 233 K/mm3 (150-400); RDW Coefficient Variation 15.3 % (11.7-14.2); RDW Standard Deviation 52.2 fL (35.1-46.3); Red Blood Cell Count 3.47 M/mm3 (4.30-5.90)
[2023-11-19 04:15] LABS: Albumin, Blood 3.4 g/dL (3.4-5.0); Bilirubin, Total 1.9 mg/dL (0.1-1.0); Bun/Creatinine Ratio 28.6 (12.0-20.0); Calcium, Blood 8.7 mg/dL (8.5-10.1); Creatinine, Blood 0.91 mg/dL (0.60-1.20); Globulin, Blood 3.5 g/dL (2.2-4.0); Magnesium, Blood 2.4 mg/dL (1.6-2.4); Potassium, Blood 3.9 mmol/L (3.5-5.5); Total Protein, Blood 6.9 g/dL (6.4-8.2)
--- NOTE | 2023-11-19 06:23 | NUR ---
SHIFT SUMMARY PT DID NOT SLEEP FOR LONG OVERNIGHT, BUT DID WELL WITH RESTING IN BED AND GETTING UP WITH SOME ASSISTANCE TO USE URINAL. PT REMAINS WITH [address], SALINE LOCKED. PT HR REMAINS IN AFIB, 70S. PT STARTED ON 3L O2 NC AROUND 0400 FOR DESATTING. PT STATES DESPITE PREVIOUS RECOMMENDATIONS OF BIPAP/DIAGNOSIS OF BEAR, PT WILL NOT CONSIDER WEARING BIPAP/CPAP. PT REMAINS ANXIOUS TO LEAVE ICU TO BE DOWNGRADED TO PCU AND TO RECEIVE ANSWERS FOR WHY PT IS EXPERIENCING SYNCOPAL EPISODES.
[2023-11-19] MEDS ORDERED: Rivaroxaban 10 MG Tab PO SCH ×2 (09:00)
[2023-11-19] MEDS ORDERED: Clopidogrel Bisulfate 75 MG Tab PO SCH (09:00)
[2023-11-19] MEDS ORDERED: Furosemide 10 MG/ML 4ML Vial IV SCH (09:00)
[2023-11-19] MEDS ORDERED: Metoprolol Succinate 25 MG TABCR PO SCH (09:00)
[2023-11-19 09:57] LABS: International Normalized Ratio 2.67; Prothrombin Time Results 26.6 Sec (9.7-11.5)
[2023-11-19] MEDS ORDERED: WARF5 PO (11:39)
--- NOTE | 2023-11-19 16:24 | NUR ---
PT A/O X4, USES CALL LIGHT APPROPRIATELY, NO BOUTS OF DIZZINESS TODAY. DR. KOENIG CONSULTED AND WENT OVER AICD PLACEMENT AND OPTIONS. FOR NOW MEDS ADJUSTED AND CONTINUE TO MONITOR FOR SYNCOPE. NO OTHER CHANGES TODAY. PT MOVED TO PCU 7 VIA W/C.
[2023-11-19] MEDS ORDERED: Furosemide 80 MG Tab PO SCH (18:00)
[2023-11-19] MEDS ORDERED: Warfarin Sodium 5 MG Tab PO SCH (18:00)
--- NOTE | 2023-11-19 18:00 | NUR ---
PT ARRIVED TO U07 FROM ICU 12 VIA WHEELCHAIR. PT ABLE TO STAND AND TRANSFER W SBA. PT PLACED ON TELE, AFLUTTER. 6 BEAT RUN OF VT THIS EVENING, PT ASYMPTOMATIC. NO ACUTE CHANGES. PT IS ALERT, ORIENTED, ABLE TO MAKE NEEDS KNOWN AND USE CALL LIGHT APPROPRIATELY. NO NEEDS IDENTIFIED AT THIS TIME. WILL CONTINUE TO MONITOR AND GIVE REPORT TO NOC SHIFT RN.
--- NOTE | 2023-11-19 18:03 | NUR ---
SHIFT SUMMARY: PT TRANSFER FROM ICU IN A WHEELCHAIR. PT A&Ox4. VSS. PT ON 1-ASSIST, ABLE TO AMBULATE FROM BED TO CHAIR. PT DENIES CHEST PN/PRESSURE. DENIES N/V/D. PT ABLE TO MAKE NEEDS KNOWN. CALL LIGHT WITHIN REACH. WILL REPORT TO ONCOMING SHIFT RN.
[2023-11-19] MEDS ORDERED: Sacubitril/Valsartan 24 MG-26 MG Tab PO SCH (21:00)
[2023-11-19] MEDS ORDERED: Ibuprofen 400 MG Tab PO PRN (22:50)
[2023-11-19] MEDS ORDERED: Acetaminophen 500 MG Tab PO PRN (22:51)
[2023-11-19] MEDS ORDERED: Acetaminophen 325 MG TABLET PO ONE (22:55)
--- NOTE | 2023-11-20 00:03 | NUR ---
ASSUMPTION OF CARE THIS RN ASSUMED CARE OF PATIENT AT 1900. PT A&O X4. ABLE TO MAKE NEEDS KNOWN. VSS. NO VTACH NOTED ON TELE. DENIES DIZZINESS. AMBULATING TO BATHROOM WITH FWW AND SBA. PT REPORTED ARTHRITIC SHOULDER PAIN AND REQUESTED TYLENOL. MEDICATED PER EMAR. PT LATER REPORTED THAT PAIN WAS WORSENED APPROXIMATELY 3 HOURS AFTER ADMINISTRATION, REQUESTED MORE TYLENOL. CALL PLACED TO PROVIDER FELA. ORDER FOR INCREASED DOSE OF TYLENOL AND PO IBUPROFEN. MEDICATED PER EMAR. BED IN LOWEST POSITION AND CALL LIGHT WITHIN REACH.
[2023-11-20 04:20] LABS: BASOPHILS ABSOLUTE AUTO 0.04 K/mm3 (0.00-0.23); BASOPHILS PERCENT AUTO 1 % (0-2); EOSINOPHILS ABSOLUTE AUTO 0.19 K/mm3 (0.00-0.68); EOSINOPHILS PERCENT AUTO 3 % (0-6); Hematocrit 32.5 % (37.0-53.0); Hemoglobin 10.1 g/dL (13.5-17.5); IMMATURE GRAN ABSOLUTE AUTO 0.02 K/mm3 (0.00-0.10); IMMATURE GRAN PERCENT AUTO 0 % (0-1); LYMPHOCYTES PERCENT AUTO 13 % (21-46); MONOCYTES ABSOLUTE AUTO 0.86 K/mm3 (0.16-1.47); MONOCYTES PERCENT AUTO 12 % (4-13); Mean Corpuscular HGB Conc 31.1 g/dL (31.5-36.5); Mean Corpuscular Volume 93 fL (80-100); Mean Platelet Volume 9.5 fL (9.1-12.4); NEUTROPHILS ABSOLUTE AUTO 4.94 K/mm3 (1.96-9.15); NEUTROPHILS PERCENT AUTO 71 % (41-73); Platelet Count 223 K/mm3 (150-400); RDW Coefficient Variation 15.5 % (11.7-14.2); RDW Standard Deviation 52.9 fL (35.1-46.3); Red Blood Cell Count 3.48 M/mm3 (4.30-5.90); White Blood Cell Count 6.95 K/mm3 (4.00-11.30)
[2023-11-20 04:21] VITALS: BP 110/67
[2023-11-20 04:35] LABS: International Normalized Ratio 1.97
[2023-11-20 04:39] LABS: Bun/Creatinine Ratio 29.3 (12.0-20.0); Calcium, Blood 8.3 mg/dL (8.5-10.1); Creatinine, Blood 0.92 mg/dL (0.60-1.20); Potassium, Blood 3.8 mmol/L (3.5-5.5)
--- NOTE | 2023-11-20 04:54 | NUR ---
SHIFT SUMMARY SEE PREVIOUS NOTE. VITALS REMAIN STABLE. NO ACUTE EVENTS OVERNIGHT. NO NOTED VTACH ON MONITOR. PT'S NEURO INTACT. ABLE TO MAKE NEEDS KNOWN. USING URINAL INDEPENDENTLY. BED IN LOWEST POSITION AND CALL LIGHT WITHIN REACH. THIS RN WILL REPORT TO ONCOMING DAYSHIFT RN.
[2023-11-20 07:25] VITALS: BP 136/69
[2023-11-20] MEDS ORDERED: MICONAZOLE 745 G1 TOP (10:00)
== END 2023-11-20 11:47 | disposition home or self-care (01) | DRG 291 ==
LOC: ER 11:30 → ICUE 14:58 → PCU 11-19 16:28
PROVIDERS: Emergency Medicine; Internal Medicine; ADMIT Student in an Organized Health Care Education/Training Program
DX: I11.0 Hypertensive heart disease with heart failure (principal); I50.23 Acute on chronic systolic (congestive) heart failure; I48.21 Permanent atrial fibrillation; Z68.41 Body mass index [BMI] 40.0-44.9, adult; I25.10 Atherosclerotic heart disease of native coronary artery without angina pectoris; E11.9 Type 2 diabetes mellitus without complications; E78.5 Hyperlipidemia, unspecified; E66.01 Morbid (severe) obesity due to excess calories; R55 Syncope and collapse; I49.3 Ventricular premature depolarization; J45.909 Unspecified asthma, uncomplicated; I44.7 Left bundle-branch block, unspecified; Z95.5 Presence of coronary angioplasty implant and graft; Z86.711 Personal history of pulmonary embolism; Z86.718 Personal history of other venous thrombosis and embolism; Z79.02 Long term (current) use of antithrombotics/antiplatelets; Z79.01 Long term (current) use of anticoagulants; Z79.899 Other long term (current) drug therapy; Z87.891 Personal history of nicotine dependence
CPT/HCPCS: 36415; 71046; 80048; 80053; 82947; 83036; 83735; 83880; 84443; 84484; 85025; 85610; 93005; 93010; 93308; 93321; 94762; 96374; 99285-25; A9270; J1940; Q9957

== ENCOUNTER 2023-11-30 13:33 | Emergency (ER) | payer MEDICARE, OTHER ==
[~2023-11-30] VITALS: Ht 177.8 cm; Wt 158.8 kg
[2023-11-30 13:33] VITALS: BP 117/74
== END 2023-11-30 16:10 | disposition home or self-care (01) ==
LOC: ER 13:33
DX: S09.90XA Unspecified injury of head, initial encounter (principal); S00.83XA Contusion of other part of head, initial encounter; S00.81XA Abrasion of other part of head, initial encounter; S41.101A Unspecified open wound of right upper arm, initial encounter; S61.502A Unspecified open wound of left wrist, initial encounter; W18.30XA Fall on same level, unspecified, initial encounter; T45.515A Adverse effect of anticoagulants, initial encounter; R55 Syncope and collapse; I48.91 Unspecified atrial fibrillation; E10.9 Type 1 diabetes mellitus without complications; E66.01 Morbid (severe) obesity due to excess calories; J45.909 Unspecified asthma, uncomplicated; I11.0 Hypertensive heart disease with heart failure; I50.9 Heart failure, unspecified; Z79.01 Long term (current) use of anticoagulants; Z79.02 Long term (current) use of antithrombotics/antiplatelets; Z79.899 Other long term (current) drug therapy; Z88.0 Allergy status to penicillin

== ENCOUNTER 2024-07-28 12:03 | Day surgery (SDC) | payer MEDICARE, OTHER ==
[~2024-07-28] VITALS: Ht 188 cm; Wt 146.8 kg
[~2024-07-28 12:03] MED LIST changes: +ATOR10 PO; +Aspir 8181 MG PO; +Balanced Salt Epinephrine Irrigation Solution 500 mL IR SCH; +Carisoprodol350 MG PO; +FURO80; +K-Dur20 MEQ PO; +Lidocaine HCl/Pf 1% 5 ML VIAL XX SCH; +MICONAZOLE 745 G1 TOP; +MULVITA PO; +Moxifloxacin HCL 0.5 MG/0.1 ML 0.4MLSYR LEFTEYE SCH; +NITR.4SL SL; +PHENYLEPHRINE\\TROPICAMIDE\\TETRACAINE OPHTHALMIC DILATING SOLN LEFTEYE PRN; +Povidone-Iodine 450 DROP/30 ML Solution LEFTEYE SCH; +Povidone-Iodine 450 DROP/30 ML Solution ONE; +Tetracaine HCl/Pf 0.5% Opth Soln 4 ml ONE; +Triamcinolone Inj Susp 40 MG / ML 1ML Vial INJ SCH; +Triamcinolone Inj Susp 40 MG / ML 1ML Vial ONE; +ULTRACET PO; +WARF2.5 PO
[2024-07-28] MEDS ORDERED: Diazepam 2 MG Tab ONE (12:14)
--- NOTE | 2024-07-28 12:29 | NUR ---
07/28/24 1229 Mini Ortega TETRACAINE AT 1216 PLEDGET AT 1221. VALIUM 4MG GIVEN AT 1221 PER ORDER
[2024-07-28] MEDS ORDERED: JANTOVEN5 M2 PO (12:34)
[2024-07-28] MEDS ORDERED: SPIRONOLACTONE25 MG PO (12:35)
[2024-07-28] MEDS ORDERED: TRAM50 PO (12:35)
[2024-07-28 13:36] VITALS: BP 116/69
== END 2024-07-28 14:10 | disposition home or self-care (01) ==
LOC: ORSCSDS 12:03
PROVIDERS: Ophthalmology
PROC: 08RK3JZ Replacement of Left Lens with Synthetic Substitute, Percutaneous Approach (ICD-10-PCS; principal; 2024-07-28 13:30)
DX: E11.36 Type 2 diabetes mellitus with diabetic cataract (principal); H25.812 Combined forms of age-related cataract, left eye; I48.91 Unspecified atrial fibrillation; Z79.01 Long term (current) use of anticoagulants; I10 Essential (primary) hypertension; E78.5 Hyperlipidemia, unspecified; J45.909 Unspecified asthma, uncomplicated; Z79.02 Long term (current) use of antithrombotics/antiplatelets; Z79.899 Other long term (current) drug therapy; Z79.82 Long term (current) use of aspirin; E66.01 Morbid (severe) obesity due to excess calories; Z68.41 Body mass index [BMI] 40.0-44.9, adult; I25.2 Old myocardial infarction; I50.9 Heart failure, unspecified
CPT/HCPCS: 82947; A9270; J3301; V2632